=== PATIENT | female | born 1985 | race Caucasian/White ===

== ENCOUNTER 2022-12-26 09:54 | Outpatient (RCR) | payer OTHER, SELFPAY | END 2023-02-05 14:08 | disposition home or self-care (01) | LOC: PT 09:54 | PROVIDERS: PCP Orthopaedic Surgery; Visit Provider Orthopaedic Surgery | DX: M75.122 Complete rotator cuff tear or rupture of left shoulder, not specified as traumatic (principal) | CPT/HCPCS: 97110 ==